=== PATIENT | female | born 1995 | race Two or more races ===

== ENCOUNTER 2025-03-31 09:00 | Day surgery (SDC) | payer MEDICAID, SELFPAY ==
--- NOTE | 2025-03-28 06:27 | EKG_ITS ---
[facility] Test Date: 2025-03-28 Pat Name: KULWANT CONKLIN Department: Room: - Gender: Female Unpaid Intern: BELKYS : 1995 Requested By: Randy Montenegro Order Number: [id number] Reading MD: Randy Montenegro Measurements Intervals Fouke Rate: 97 P: 50 RI: 119 QRS: 78 QRSD: 90 T: 36 QT: 350 QTc: 445 Interpretive Statements SINUS RHYTHM WITH SHORT RI INTERVAL No previous ECG available for comparison /store/S0/[id number].pdf
[2025-03-28 09:53] VITALS: BMI 27.3
[2025-03-28 10:08] LABS: Collection Type, Urine Clean Catch
[2025-03-28 10:37] LABS: Basophils # (Auto) 0.1 Thou/mm3 (0.0-0.2); Basophils % (Auto) 1 % (0-2.5); Eosinophils # (Auto) 0.3 Thou/mm3 (0.0-0.5); Eosinophils % (Auto) 5 % (0-10); Hematocrit 37.6 % (36.0-46.0); Hemoglobin 12.9 g/dL (12.0-16.0); Immature Granulocytes Auto 0.03 Thou/mm3 (0.00-0.00); Lymphocytes # (Auto) 2.0 Thou/mm3 (1.0-4.8); Lymphocytes % (Auto) 32 % (10-50); Mean Corpuscular HGB Conc 34.3 g/dl (31.0-37.0); Mean Corpuscular Hemoglobin 29.9 pg (25.0-35.0); Mean Corpuscular Volume 87 fL (80-100); Monocytes # (Auto) 0.7 Thou/mm3 (0.0-0.8); Monocytes % (Auto) 11 % (0-12); Neutrophils # (Auto) 3.2 Thou/mm3 (1.8-7.7); Neutrophils % (Auto) 50 % (37-80); Nucleated Red Blood Cell # 0.00 Thou/mm3 (0.00-0.00); Nucleated Red Blood Cell % 0 /100 WBC (0); Platelet Count 392 Thou/mm3 (140-440); RDW Standard Deviation 39.7 fL (36.4-46.3); Red Blood Count 4.32 Miln/mm3 (4.00-5.20); White Blood Count 6.3 Thou/mm3 (3.6-11.0)
[2025-03-28 10:44] LABS: Bacteria,Urine Rare; Bilirubin,Urine Negative (Negative); Blood,Urine 1+ (Negative); Clarity,Urine Clear (Clear/Hazy); Color,Urine Lt-Yellow (Lt Yel-Yel); Glucose, Urine Negative (Negative); Ketones,Urine Negative (Negative); Leukocyte Esterase,Urine Positive (Negative); Nitrite,Urine Positive (Negative); PH,Urine 6.5 (5.0-7.0); Protein,Urine Negative (Neg - Trace); RBC,Urine 2 /hpf (0-3); Specific Gravity,Urine 1.011 (1.001-1.035); Squamous Epithelial Cell,Urine 3 /hpf (0-5); Urobilinogen,Urine Negative mg/dL (0.0-1.0); WBC,Urine 11 /hpf (0-5)
[2025-03-28 10:47] LABS: Partial Thromboplastin Time 26.6 Seconds (22.0-36.0)
[2025-03-28 10:59] LABS: Alanine Aminotransferase 17 U/L (10-49); Albumin, Serum 4.7 gm/dL (3.5-5.0); Albumin/Globulin Ratio 1.8 (1.2-2.2); Alkaline Phosphatase 146 U/L (46-116); Anion Gap 7 (7-16); Aspartate Amino Transferase 19 U/L (0-34); BUN/Creatinine Ratio 17 Ratio (12-20); Bilirubin,Total 0.5 mg/dL (0.3-1.2); Blood Urea Nitrogen 10 mg/dL (9-23); Calcium 9.0 mg/dL (8.3-10.6); Calcium (Corrected) 9.0 mg/dL (8.5-10.1); Carbon Dioxide 25.8 mMol/L (20.0-31.0); Chloride 107 mMol/L (98-107); Creatinine (Component) 0.6 mg/dL (0.6-1.3); Estimated Creatinine Clearance 112.0 mL/min (>60); Globulin 2.6 gm/dL (2.3-3.5); Glucose 86 mg/dL (74-106); Osmolality,Calculated 277 (275-295); Potassium 4.0 mMol/L (3.4-5.1); Sodium 140 mMol/L (136-145); Total Protein 7.3 gm/dL (5.7-8.2); eGFR > 60 See Note
[2025-03-28 11:55] LABS: HCG Qualitative,Urine Negative
[2025-03-31] VITALS (9 sets, daily range): BP systolic 114–132; BP diastolic 74–98; PULSE 82–96; RESP 15–20; TEMP 36.3–36.4; O2SAT 99–100; BMI 27.6
--- NOTE | 2025-03-31 09:51 | SUR.PREOP ---
Patient expressed gratitude for prayer before their procedure.
--- NOTE | 2025-03-31 13:45 | SUR.PHASEI ---
5633 Patient arrived to recovery resting comfortably in [facility], sleeping; able to arouse with verbal prompting, then drifts back to sleep, on oxygen 6L via oxy mask, breathing unlabored, vital signs stable, denies pain and nausea, dressing intact to abdomen; x8 ports- steri-strips, gauze, medipore tape, no bleeding noted, report received from Dr. Goodmna and Nikita MUNIZ
--- NOTE | 2025-03-31 14:10 | SUR.PHASEI ---
1407 verbal order read-back from Dr. Montenegro to remove fulton catheter, will place order in EMR and follow as directed 1410 Fulton catheter discontinued, patient tolerate well
--- NOTE | 2025-03-31 14:15 | PD.SUROPNT ---
Date of Procedure 03/31/25 Pre Op Diagnosis Incarcerated umbilical hernia and incarcerated ventral hernia Post Op Diagnosis Same. Procedure Laparoscopic ventral incarcerated hernia repair and repair of umbilical hernia with implantation of proceed patch on 03/31/2025 Findings This patient had 2 different ventral hernias which were symptomatic. She was found to have an epigastric ventral hernia with incarceration. She also had an umbilical hernia that was incarcerated. Procedure Description The patient was interviewed in the preoperative area the risk benefits and alternatives of the surgical procedure were discussed with the patient and informed consent is obtained. Patient will undergo laparoscopic repair of ventral hernias which is symptomatic. Patient was then taken to the operating room and general anesthesia was administered in a satisfactory manner. Patient is positioned in the modified lithotomy position with yellowfin's. Ultrasound of the abdominal wall is carried out and the hernias were marked on the surface. Abdomen was prepped and draped in usual manner. IV antibiotics were given and a timeout procedure is carried out. Left flank region incision is made and an open laparoscopic procedure is carried out and balloon cannula was introduced. Pneumoperitoneum is achieved. 30 degree scope is used. Under direct vision the left upper quadrant and left lower quadrant trocars were introduced. Examination is carried out. The hernias are noted and then the reduced. Contents of the hernia were removed as specimen. The defect area was measured which was about 10 cm x 15 cm the procedure patch was selected. I prepared the proceed patch with 4 corner stitches of 3-0 Ethibond with long tails. On the abdominal wall I selected the location where Daniel Wilkinson retriever may be inserted. Under direct vision I placed the patch inside the peritoneal cavity and unrolled it. Then by making small incisions in 4 corners I placed the Daniel-Kimber retriever and retrieved those sutures to pull the patch up to the abdominal wall. After the patch was secured to the anterior abdominal wall with the absorbable site over the bowel I proceeded to put in alban with secure strap. The right sided alban were secured first and then I placed in a 5 mm trocar on the right side and then secured the patch to the left side of the defects. The sutures holding the patch were removed. The patch is covering both the defects in an adequate manner. Under direct vision all the cannulas are removed there is no bleeding from the cannula sites. The primary port site was closed using 0 Vicryl UR 6 suture. Subcu tissue by 3-0 chromic and skin by 4-0 Monocryl subcuticular stitches. Steri-Strips were applied. Rest of the incisions are closed with 3-0 chromic and 4-0 Monocryl subcuticular stitches Steri-Strips were applied. Sterile dressings were applied. Patient taught the procedure very well. Complications none. Anesthesia GETA Drains None. Implants Implants comments: Proceed 10 cm x 15 cm with an absorbable layer. Secure strap absorbable tacks Pathology / specimen Other (Ventral hernia contents and umbilical hernia sac) Estimated Blood Loss 5 Condition Stable Disposition PACU Surgeon Randy Montenegro MD Surgical Staff Operation Date: 03/31/25 11:00 Case Staff Anesthesiologist: Nomi Goodman RN First Assistant: Michelle Holley surgical elastic knitter hand frame with the student Nikita MUNIZ assistant program manager
--- NOTE | 2025-03-31 15:04 | SUR.PHASEII ---
1504 patient meets discharge criteria from recovery, awake and alert, breathing unlabored, vital signs stable, denies pain and nausea, dressing intact; no bleeding noted, assisted with dressing into her clothing by this teletypewriter installer, discharge instructions given to patient and patient mother, mother signed discharge instructions. Patient given all her belongings prior to discharge, transported via wheelchair and left in a private vehicle.
== END 2025-03-31 15:04 | disposition home or self-care (01) ==
PROVIDERS: Anesthesiology; Referring Provider Specialist; Visit Provider Specialist
PROC: 0WQF4ZZ Repair Abdominal Wall, Percutaneous Endoscopic Approach (ICD-10-PCS; CPT 49592; principal; 2025-03-31 10:45)
DX: K42.0 Umbilical hernia with obstruction, without gangrene (principal); K43.6 Other and unspecified ventral hernia with obstruction, without gangrene; Z01.810 Encounter for preprocedural cardiovascular examination
CPT/HCPCS: 49592; 36415; 80053; 81001; 81025; 85025; 85730; 93005; A4649; C1781; J0131; J0690; J1100; J1885; J2250; J2405; J2704; J3010; J3490